=== PATIENT | female | born 1955 | race Caucasian/White ===

== ENCOUNTER → 2018-06-24 13:17 | Outpatient (CLI) | payer OTHER, SELFPAY ==
--- NOTE | 2018-06-24 | DI.MG.S_ITS ---
BILATERAL DIGITAL SCREENING MAMMOGRAM 3D/2D WITH CAD: 06/24/2018 CLINICAL: Routine screening. Family history of breast cancer. Comparison is made to exams dated: 11/07/2015 mammogram, 09/14/2013 mammogram, and 09/24/2011 mammogram - [facility]. There are scattered fibroglandular elements in both breasts. Current study was also evaluated with a Computer Aided Detection (CAD) system. There is a mole marker on the right breast. No significant masses, calcifications, or other findings are seen in either breast. There has been no significant interval change. IMPRESSION: NEGATIVE There is no mammographic evidence of malignancy. A 1 year screening mammogram is recommended. This exam was interpreted at Station ID: [id number]. NOTE: For mammograms, a report in lay terms will be sent to the patient. Approximately 15% of breast malignancies will not be visualized mammographically. In the management of a palpable breast mass, a negative mammogram must not discourage biopsy of a clinically suspicious lesion. Electronically Signed By: Issa salgado/aaliyah:06/28/2018 00:06:06 copy to: Vivian Wilcox letter sent: Normal Exam ACR BI-RADS Category 1: Negative 3341F
== END ==
PROVIDERS: Family Provider Physician Assistant Medical; PCP Physician Assistant Medical; Visit Provider Family Medicine
DX: Z12.31 Encounter for screening mammogram for malignant neoplasm of breast (principal); Z80.3 Family history of malignant neoplasm of breast
CPT/HCPCS: 77063; 77067

== ENCOUNTER → 2019-05-28 16:31 | Outpatient (CLI) | payer OTHER, SELFPAY | PROVIDERS: Family Provider Physician Assistant Medical; PCP Physician Assistant Medical; Visit Provider Physician Assistant | DX: N30.01 Acute cystitis with hematuria (principal) | CPT/HCPCS: 87086 ==

== ENCOUNTER → 2019-07-27 09:00 | Outpatient (CLI) | payer OTHER, SELFPAY ==
--- NOTE | 2019-07-27 | DI.MG.S_ITS ---
BILATERAL DIGITAL SCREENING MAMMOGRAM 3D/2D WITH CAD: 07/27/2019 CLINICAL: Routine screening. Family history of breast cancer. Comparison is made to exams dated: 06/24/2018 mammogram, 11/07/2015 mammogram, 09/14/2013 mammogram, 07/01/2006 mammogram, 09/24/2011 mammogram, and 09/11/2010 mammogram - [facility]. The tissue of both breasts is predominantly fatty. Current study was also evaluated with a Computer Aided Detection (CAD) system. There is a mole marker on the right breast. No significant masses, calcifications, or other findings are seen in either breast. There has been no significant interval change. IMPRESSION: NEGATIVE There is no mammographic evidence of malignancy. A 1 year screening mammogram is recommended. This exam was interpreted at Station ID: [id number]. NOTE: For mammograms, a report in lay terms will be sent to the patient. Approximately 15% of breast malignancies will not be visualized mammographically. In the management of a palpable breast mass, a negative mammogram must not discourage biopsy of a clinically suspicious lesion. Electronically Signed By: Sanya lopez/aaliyah:07/27/2019 10:31:47 copy to: Vivian Wilcox letter sent: Normal Exam ACR BI-RADS Category 1: Negative 3341F
--- NOTE | 2019-07-27 | DI.ECHO.S_ITS ---
[facility] +---------+ : : [address] : : : : [id number] : : : : Phone: [phone]+ Echocardiogram Report + + :Name: LONNIE GAMBINO Study Date: 07/27/2019 Height: 61 in : :[facility] Weight: 210 lb : : Gender: Female BSA: 1.9 m2 : :: 1955 Age: 63 yrs BP: 154/88 mmHg: :Reason For Study: Murmur : : Performed By: Angela Mccabe : :Referring: SERENITY COLEMAN : + + Interpretation Summary Normal both left and right ventricle size and function. The ejection fraction is 60-65%. No valvular abnormality. Mildly enlarged ascending aorta and aortic arch. Procedure: A two-dimensional transthoracic echocardiogram with color flow and Doppler was performed. The study quality was technically good. Most of the acoustic windows were suboptimal, but the best imaging was obtained from the subcostal window. The patient was in normal sinus rhythm during the exam. Left Ventricle: The left ventricle is normal in size, wall thickness, and systolic function without any focal wall motion abnormalities. The ejection fraction is estimated to be 60-65%. Right Ventricle: The right ventricle grossly appears normal in size with probable normal systolic function. Atria: The left atrial size is normal. Right atrial size is normal. The interatrial septum is intact with no evidence for an atrial septal defect. Mitral Valve: The mitral valve is normal in structure and function. There is no mitral regurgitation noted. Aortic Valve: The aortic valve is trileaflet. The aortic valve opens well. No aortic regurgitation is present. Tricuspid Valve: The tricuspid valve is normal in structure and function. There is a trace or physiologic amount of tricuspid regurgitation. The right ventricular systolic pressure is estimated to be at least 21 mmHg based on an estimated right atrial pressure of 3 mm Hg. Pulmonic Valve: The pulmonic valve is normal in structure and function. There is trace pulmonic regurgitation. Great Vessels: The aortic root is normal size. The ascending aorta is mildly enlarged. The aortic arch is mildly enlarged. The IVC is of normal diameter and collapses greater than 50% with a sniff. This suggests a low right atrial pressure of 3 mm Hg. Pericardium/ Pleura There is no pericardial effusion. There is no pleural effusion. MMode/2D Measurements & Calculations LVIDd: 4.6 cm Ao root diam: 3.6 cm LVIDs: 2.8 cm Aortic Jxn: 3.0 cm FS: 39.0 % asc Aorta Diam: 3.8 cm EPSS: 0.71 cm Ao Arch Diam (Prox Trans): 3.4 cm IVSd: 0.88 cm LVPWd: 0.96 cm LV zaman. diameter/BSA (cm/m^2): 2.4 LV sys. diameter/BSA (cm/m^2): 1.5 LA dimension: 3.7 cm RA long axis: 4.8 cm LA A2 area: 17.1 cm2 RA area: 13.4 cm2 LA A4 area: 19.0 cm2 RA vol: 32.1 ml LA length (vol): 5.4 cm RA : 16.6 ml/m2 LA vol: 51.4 ml IVC diam: 1.2 cm LA vol index: 26.7 ml/m2 RVDd major: 4.3 cm RVD1 (basal): 3.3 cm RVD2 (mid): 2.6 cm Doppler Measurements & Calculations Ao V2 max: 158.1 cm/sec MV E max jhonny: 93.8 cm/sec Ao V2 mean: 96.5 cm/sec MV A max jhonny: 92.4 cm/sec Ao max P.0 mmHg MV E/A: 1.0 Ao mean P.4 mmHg MV dec time: 0.30 sec Ao V2 VTI: 34.8 cm MV P1/2t: 88.4 msec TR max jhonny: 209.8 cm/sec MV P1/2t max jhonny: 94.0 cm/sec TR max P.6 mmHg MVA(P1/2t): 2.5 cm2 PA V2 max: 94.4 cm/sec PA V2 mean: 62.8 cm/sec PA mean P.8 mmHg PA Accel Time: 0.16 sec Electronically signed by: Veronica Graff on Reading Physician:07/27/2019 04:42 PM
== END ==
PROVIDERS: PCP Physician Assistant Medical; Visit Provider Family Medicine
DX: Z12.31 Encounter for screening mammogram for malignant neoplasm of breast (principal); Z80.3 Family history of malignant neoplasm of breast; R01.1 Cardiac murmur, unspecified; I77.89 Other specified disorders of arteries and arterioles
CPT/HCPCS: 77063; 77067; 93306

== ENCOUNTER → 2020-07-30 17:44 | Outpatient (CLI) | payer OTHER, SELFPAY ==
--- NOTE | 2020-07-30 17:45 | DI.MG.S_ITS ---
BILATERAL DIGITAL SCREENING MAMMOGRAM 3D/2D WITH CAD: 07/30/2020 CLINICAL: Routine screening. Family history of breast cancer. Comparison is made to exams dated: 07/27/2019 mammogram, 06/24/2018 mammogram, and 11/07/2015 mammogram - [facility]. The tissue of both breasts is predominantly fatty. Current study was also evaluated with a Computer Aided Detection (CAD) system. No significant masses, calcifications, or other findings are seen in either breast. There has been no significant interval change. IMPRESSION: NEGATIVE There is no mammographic evidence of malignancy. A 1 year screening mammogram is recommended. This exam was interpreted at Station ID: [id number]. NOTE: For mammograms, a report in lay terms will be sent to the patient. Approximately 15% of breast malignancies will not be visualized mammographically. In the management of a palpable breast mass, a negative mammogram must not discourage biopsy of a clinically suspicious lesion. Electronically Signed By: Eric proctor/aaliyah:07/31/2020 09:02:29 copy to: Vivian Wilcox letter sent: Normal Exam ACR BI-RADS Category 1: Negative 3341F
== END ==
PROVIDERS: PCP Physician Assistant Medical; Referring Provider Physician Assistant Medical; Visit Provider Physician Assistant Medical
DX: Z12.31 Encounter for screening mammogram for malignant neoplasm of breast (principal); Z80.3 Family history of malignant neoplasm of breast
CPT/HCPCS: 77063; 77067

== ENCOUNTER → 2020-09-25 14:49 | Outpatient (CLI) | payer MEDICARE, OTHER, SELFPAY ==
[2020-09-25 15:42] LABS: Appearance Urine UA CLEAR; Bilirubin Urine UA NEGATIVE (NEGATIVE); Color Urine UA YELLOW; Glucose Urine UA NEGATIVE (Negative); Ketones Urine UA NEGATIVE (NEGATIVE); Leukocyte Esterase Urine UA NEGATIVE (NEGATIVE); Nitrite Urine UA NEGATIVE (Negative); Occult Blood Urine UA TRACE-INTACT (Negative); Protein Urine UA TRACE (Negative); Specific Gravity Urine UA 1.015 (1.000-1.035)
[2020-09-25 15:50] LABS: Add Manual Diff / Slide Review NO; Basophils Absolute Auto 100 /uL (0-100); Basophils Percent Auto 0.7 % (0-2); Eosinophils Absolute Auto 300 /uL (0-450); Eosinophils Percent Auto 3.7 % (2-4); Hematocrit 39.4 % (36-46); Lymphocytes Absolute Auto 1700 /uL (1100-4500); Lymphocytes Percent Auto 18.8 % (25-40); Mean Corpuscular HGB Conc 33.2 % (30-36); Mean Corpuscular Hemoglobin 28.9 PG (26-34); Mean Corpuscular Volume 87.2 fL (80-100); Monocytes Absolute Auto 900 /uL (0-900); Monocytes Percent Auto 9.5 % (3-14); Neutrophils Absolute Auto 6200 /uL (1500-7000); Neutrophils Percent Auto 67.3 % (50-75); Platelet Count 261 X10^3/uL (150-400); Red Blood Cell Count 4.52 X10^6/uL (4.0-5.2); Red Cell Distribution Width 13.6 % (11.6-14.8); White Blood Cell Count 9.2 X10^3/uL (4.5-11.0)
[2020-09-25 15:55] LABS: Hemoglobin A1C% w Est Avg Glu 5.5 % (4.0-6.0)
[2020-09-25 16:21] LABS: BUN Creatinine Ratio 28.6 (6-22); Bacteria Urine Few (2-10); Blood Urea Nitrogen 20 mg/dL (7-17); Calcium 9.5 mg/dL (8.4-10.2); Carbon Dioxide 33 mmol/L (22-32); Chloride 101 mmol/L (98-107); Estimated Glomerular Filt Rate > 60.0 mL/min (>60); Glucose 106 mg/dL (80-110); HEMOLYSIS < 15 (0-50); Mucus Urine 1+ (Negative); Potassium 4.1 mmol/L (3.4-5.1); RBC Urine 1-5/HPF (0-5/HPF); Sodium 138 mmol/L (137-145); Squamous Epithelial Cell Urine 0-1 /HPF (0-5/HPF); WBC Urine 0-1/HPF (0-5/HPF)
[2020-09-25 16:22] LABS: Culture Indicated Urine Cult Not Indicated
== END ==
PROVIDERS: PCP Physician Assistant Medical; Referring Provider Physician Assistant Medical; Visit Provider Orthopaedic Surgery
DX: Z01.818 Encounter for other preprocedural examination (principal); R73.9 Hyperglycemia, unspecified; Z01.812 Encounter for preprocedural laboratory examination; N39.0 Urinary tract infection, site not specified
CPT/HCPCS: 36415; 80048; 81001; 83036; 85025; 93005; 93010

== ENCOUNTER → 2020-10-11 11:25 | Outpatient (CLI) | payer MEDICARE, OTHER, SELFPAY ==
[2020-10-11 12:36] LABS: COVID19 -Nasal RAPID Negative (Negative)
== END ==
PROVIDERS: PCP Physician Assistant Medical; Visit Provider Physician Assistant
DX: Z01.812 Encounter for preprocedural laboratory examination (principal); Z20.822 Contact with and (suspected) exposure to COVID-19
CPT/HCPCS: 87635; C9803

== ENCOUNTER 2020-10-14 08:43 | Day surgery (SDC) | payer MEDICARE, OTHER, SELFPAY ==
[2020-10-08 09:00] VITALS: BMI 35.9
[2020-10-14] VITALS (15 sets, daily range): BP systolic 91–135; BP diastolic 55–79; PULSE 61–76; RESP 10–20; TEMP 35.6–36.9; O2SAT 91–99; BMI 36.0
--- NOTE | 2020-10-14 | DI.RAD.S_ITS ---
PROCEDURE: XR PELVIS 1-2V INDICATIONS: INTER-OP ROSIO, right hip TECHNIQUE: Intra-operative view of the pelvis and hip acquired. COMPARISON: None. FINDINGS: An operative image was obtained during performance of a total right hip arthroplasty. There is no radiographic evidence of complications. IMPRESSION: Operative imaging utilized during right total hip arthroplasty. Dictated by: Michael Couch M.D. on 10/14/2020 at 14:17 Approved by: Michael Couch M.D. on 10/14/2020 at 14:18
[2020-10-14] MEDS: ACETAMINOPHEN 325 MG TABLET 975 MG PO (09:20)
[2020-10-14] MEDS: CELECOXIB 200 MG CAPSULE PO (09:20)
[2020-10-14] MEDS: LACTATED RINGERS 1,000 ML 42 ML IV ×3 (09:21→14:52)
[2020-10-14] MEDS: VANCOMYCIN 1,000 MG/200 ML PIGGYBACK 200 MG IV (10:19)
--- NOTE | 2020-10-14 10:41 | PM.PREOP ---
Pre-operative Note COVID-19 COVID-19 status: Negative Interval Note History & Physical reviewed/Exam performed by Physician: Yes Changes to H&P: No
--- NOTE | 2020-10-14 10:41 | PM.OP.1 ---
Operative Date/Time/Diagnoses Date of procedure: 10/14/20 Time of procedure: 10:41 Pre-op diagnosis: right hip OA Post-op diagnosis: same Procedure & Clinicians Procedure: Right total hip arthroplasty posterior approach Same procedure as scheduled: Yes Indications: The patient has had progressively worsening right hip pain with radiographic changes consistent with arthritis. Non-operative management has failed and the patient has requested total hip replacement. The risks, benefits and alternatives to surgery were discussed with the patient prior to proceeding. Risks discussed included, but were not limited to, failure to relieve pain, leg length discrepancy, dislocation, stiffness, infection, nerve damage, deep venous thrombosis, pulmonary embolism, stroke, coma, heart attack, permanent paralysis and , as well as the potential need for eventual revision of the prosthetic. Surgeon: Narcisa Monroe Athletic Coordinator: Shelbi Saeed Anesthesia Type: General Operative Notes Findings: Severe right hip osteoarthritis and avascular necrosis. Closure Type: primary Specimen(s): none sent Prosthetic devices, grafts, tissues, transplants, or devices: [employer]hew 50 R3 cup, 32 x 50 liner, one 20 mm screw, size 7 standard offset anthology Estimated Blood Loss (mL): 250 Blood products transfused: none Procedure in detail: The patient was seen in the pre-operative area, where the patient identified the left hip as the operative site and this was marked with my initials. The patient received pre-operative antibiotics and was taken to the operating room and placed on the operative table in the right lateral decubitus position after satisfactory anesthesia. A technical support 1 software engineer out was performed. The left leg was prepared from the ankle to the iliac crest with ChloroPrep in the usual fashion and draped through sterile drapes. The hip was approached through an approximately 20 cm incision centered over the greater trochanter and curving gently posteriorly as it went proximally. This was carried sharply to the fascia bj, which was divided and retracted with a self retaining retractor. The trochanteric bursa was excised with care being taken to avoid the sciatic nerve, which was identified and protected throughout the case. The short external rotators were incised and the capsulomuscular flap was raised and tagged for later repair. The hip was dislocated, and a femoral neck osteotomy performed approximately 15 mm above the lesser trochanter. Retractors were placed around the femur. The canal was opened with a box cutting osteotome, followed by a T handled reamer and a lateralizing reamer. The chili pepper broach was then used, followed by sequential broaching until there was good stability of the broach in the femur. I checked initially and anthology a but there is actually a little better fit and fill with a standard anthology. Retractors were placed to expose the acetabulum. The labrum and central soft tissues were removed. Reaming was performed initially going up in 2 mm increments, then 1 mm increments until good bite was obtained with an odd sized reamer. The cup 1 mm larger than the last reamer was then inserted using the appropriate anteversion guides. A trial neutral liner was placed. The broach was placed in the canal. A trial head and neck were then placed and the hip relocated and checked for leg length and stability. An intraoperative film confirmed the component position and no evidence of fracture. The patient was stable in the position of sleep, of squatting, and could be put through a range of motion with 45 degrees internal rotation without dislocation. At 90 degrees flexion, internal rotation to 70? was possible before dislocation. This was felt to be satisfactory and the appropriate components were opened, and the trials were removed. The rim was slightly proud posteriorly and I tamped on it a small amount attempted to further impact the cup and then further stabilize the cup with a single screw. The acetabular liner was impacted into position. The final stem was then impacted into the prepared femoral canal. The hip was meticulously irrigated with normal saline. Finally the femoral head was impacted onto the stem. The acetabulum was cleared of all material and the hip relocated one final time. The capsulomuscular flap was then repaired to the greater trochanter though an awl hole using the tag sutures. The short external rotators were repaired with a nonabsorbable suture. A deep drain was placed and brought out anteriorly. The fascia bj was closed with Vicryl. The subcutaneous layer was closed with barbed sutures and SteriStrips. An torie dressing was applied and the patient was taken to recovery having tolerated the procedure well. Complications: none Post-operative Condition: stable Disposition: Acute Care Plan for aftercare: The patient will be maintained on a standard total hip replacement protocol with weight bearing as tolerated and posterior hip precautions. The patient will receive Aspirin and sequential compression devices for DVT prophylaxis. The patient will be discharged home when safe for the home environment.
[2020-10-14] MEDS: CEFAZOLIN 2 GM/100 ML FROZ.PIGGY IV ×2 (11:28→18:23)
[2020-10-14] MEDS: TRANEXAMIC ACID 1,000 MG VIAL 1000 MG INJ ×2 (11:50→13:40)
--- NOTE | 2020-10-14 12:15 | SUR.OPER ---
Lateral on padded OR bed. Gel axillary roll. Arms secured on padded armboard with pillow supporting top arm. Padded hip positioner braces x4 - anterior and posterior chest and pelvis. Additional gel pad used anterior pelvis. Gel pad under bottom leg from knee to foot and secured with tape over sheet.
[2020-10-14] MEDS: BUPIVACAINE LIPOSOME 266 MG/20 ML VIAL INJ (12:19)
[2020-10-14] MEDS: BUPIVACAINE 0.25% W/ EPI 30 ML VIAL 60 ML INJ (12:20)
[2020-10-14] MEDS: SODIUM CHLORIDE IRRIG SOLUTION 250 ML, POVIDONE-IODINE SPONGE STICKS 1 APPLIC IRR (12:20)
[2020-10-14] MEDS: fentaNYL 100 MCG/2 ML INJ IV (14:44)
--- NOTE | 2020-10-14 14:45 | DI.RAD.S_ITS ---
PROCEDURE: XR HIP W PEL IF DONE RT 2V INDICATIONS: POST OP HIP TECHNIQUE: AP pelvis and lateral view of the right hip acquired. COMPARISON: [facility], CR, XR PELVIS WITH LATERAL HIP RIGHT, 07/23/2020, 15:06. [facility], CR, XR PELVIS 1-2V, 10/14/2020, 12:57. FINDINGS: Bones: Patient is status post right hip arthroplasty, with hardware components in expected positions. The hip joint appears congruent. The visualized bony structures appear intact. Soft tissues: Overlying postoperative changes are noted. No suspicious soft tissue densities. IMPRESSION: 1. Right hip arthroplasty with prosthesis in anatomic alignment. Dictated by: Neel Villalta M.D. on 10/14/2020 at 14:57 Approved by: Neel Villalta M.D. on 10/14/2020 at 14:58
[2020-10-14] MEDS: OXYCODONE IR 5 MG TABLET PO (15:36)
[2020-10-14] MEDS: LACTATED RINGERS 1,000 ML 125 ML IV (16:30)
[2020-10-14] MEDS: ACETAMINOPHEN 325 MG TABLET 650 MG PO ×2 (18:13→21:49)
[2020-10-14] MEDS: buPROPion XL 150 MG TAB 300 MG PO (18:23)
[2020-10-14] MEDS: IBUPROFEN 400 MG TABLET PO ×2 (18:24→21:46)
[2020-10-14] MEDS: TRAMADOL 50 MG TABLET PO (20:14)
[2020-10-14] MEDS: ONDANSETRON 4 MG/2 ML INJ IV (21:46)
[2020-10-14] MEDS: DOCUSATE 100 MG CAPSULE PO (21:46)
[2020-10-14] MEDS: ASPIRIN EC 81 MG TABLET PO (21:46)
--- NOTE | 2020-10-14 23:04 | PC.NURSE ---
shift note- Pt unresponsive, Q-2 turns @ 1700,1900, and 2039. Roland in place, so far no urine output at this time (1929). 97% RA, LS shallow and clear. HR ST-103. RR 18-20. RFA SL, ERICA midline 1/2 NS @ 100. Marla coma score-3. toes to both feet cyanotic and blanchable. 2109- In to check on pt and noticed no rise/fall to chest. No pulse to carotid by auscultation. Time of recorded 21:15. Dr. Soler, pt's Eugene, and Evens called.
--- NOTE | 2020-10-14 23:48 | PC.NURSE ---
Addendum entered by Katlyn Pearce R.N. 10/14/20 23:52: 2030- Pt able to wiggle toes but not ankle wave. C/O LLQ pain it feels like I'm having a . Educated to GI awakening and probably gas. Pt then C/O nausea and medicated with zofran 4mg IVP. Pt c/o pain /10, medicated with ultram 50mg, effective. , Ace in room and staying the night. Original Note: 1600- Pt arrived to room 216 from PACU via bed. Alert x4 but still drowsy. Right hip BE drsg CDI, HV site CDI, unable to move lower extremities. SCD's on. Ace in room. Placed brief under pt. provided with water. LFA LR @ 125. Pt denies any pain, nausea, or SOB. Call in reach.
[2020-10-15] VITALS: BP 104/60; PULSE 73; RESP 18; TEMP 36.8; O2SAT 94
[2020-10-15] MEDS: IBUPROFEN 400 MG TABLET PO ×3 (01:26→08:19)
[2020-10-15] MEDS: LACTATED RINGERS 1,000 ML 125 ML IV (01:27)
[2020-10-15] MEDS: CEFAZOLIN 2 GM/100 ML FROZ.PIGGY IV (03:29)
[2020-10-15 03:32] VITALS: BP 102/60; PULSE 74; RESP 16; TEMP 36.7; O2SAT 94
[2020-10-15 06:15] LABS: Hematocrit 33.9 % (36-46); Hemoglobin 11.1 g/dL (12.0-16.0)
--- NOTE | 2020-10-15 07:41 | PM.PNPO.1 ---
Subjective Subjective Date Patient Seen: 10/15/20 Time Patient Seen: 08:09 Interval history: She notes that she is doing reasonably well. She got a pain pill yesterday and was groggy for multiple hours. She has been incontinent. She has not been out of bed that she has minimal hip pain. Exam Vital Signs (past 8 hours): - 10/15/20 00:00 10/15/20 03:32 Temperature 98.3 F 98.0 F Pulse Rate 73 74 Respiratory Rate 18 16 Blood Pressure 104/60 102/60 Pulse Oximetry 94 94 Oxygen Delivery Method Room Air Oxygen Flow Rate 0 Narrative Exam Narrative: Alert and oriented fair range of motion in the neck normal strength in her hands, dressings intact and dry she is neurologically intact diff distally are calfs are soft bilaterally and she has minimal pain with gentle range of motion in her hip Objective Labs Result Diagrams: 10/15/20 05:40 Labs: Laboratory Results - last 24 hr 10/15/20 05:40 Hgb 11.1 L Hct 33.9 L PFSH Medical History (Updated 10/08/20 @ 09:11 by Karlene Hendrickson RN) Anxiety Depression Eczema HTN (hypertension) Surgical History (Updated 10/08/20 @ 09:40 by Karlene Hendrickson RN) History of colonoscopy History of surgery (11/08/06) Status post delivery (01/12/85) Status post delivery (01/24/87) Social History household members: spouse Smoking Status: Never smoker alcohol intake: current Assessment & Plan Post-op Postoperative Procedures: Procedures Operation Date: 10/14/20 10:45 Actual Procedures Side Surgeon p Total Hip Arthroplasty Right Narcisa Monroe MD Postoperative day: 1 Postoperative status narrative: Doing well status post right total hip arthroplasty. Postoperative plan narrative: She is doing well postoperatively she needs to get mobilized with physical therapy and then she can be discharged to home. Follow up as previously scheduled. Time Spent With Patient Time with patient: less than 15 minutes
[2020-10-15 08:05] VITALS: BP 105/71; PULSE 71; RESP 16; TEMP 36.6; O2SAT 95
[2020-10-15 08:14] VITALS: BP 105/71
[2020-10-15] MEDS: buPROPion XL 150 MG TAB 300 MG PO (08:19)
[2020-10-15] MEDS: ACETAMINOPHEN 325 MG TABLET 650 MG PO (08:20)
[2020-10-15] MEDS: DOCUSATE 100 MG CAPSULE PO (08:20)
[2020-10-15] MEDS: ASPIRIN EC 81 MG TABLET PO (08:20)
--- NOTE | 2020-10-15 10:46 | PC.NURSE ---
Pt discharge prescription Tramadol 50mg 30 tabs was not signed by Dr. Narcisa Monroe. called [facility] and her nurse will call med into [facility] in [place]. Prescription paper copy will be destroyed.
--- NOTE | 2020-10-15 10:56 | PT.IIE ---
Current Diagnoses Unilateral primary osteoarthritis, right hip (10/14/20) Pain in right hip (10/14/20) Surgery Performed Operation Date: 10/14/20 10:45 Actual Procedures p Total Hip Arthroplasty(Right) - Narcisa Monroe MD Surgical History (Last Updated 10/08/20 @ 09:40 by Karlene Hendrickson, RN) History of colonoscopy History of surgery (11/08/06) Status post delivery (01/12/85) Status post delivery (01/24/87) Medical History (Last Updated 10/08/20 @ 09:11 by Karlene Hendrickson RN) Anxiety Depression Eczema HTN (hypertension) Physical Therapy Inpatient Evaluation/Re-Eval M1 PT/OT-IP Prior Functional Status Start: 10/15/20 08:28 Freq: NEEDED Status: Active Protocol: Document 10/15/20 10:40 (Rec: 10/15/20 10:56 [id number]) Medical Review Prior Functional Status Medical History Reviewed Yes Diet/Fluid Consistency Regular Communication no deficits ntoed Mobility and Gait able to amb without AD but with significant hip pain. Only able to tolerate 20-30 ft at once and needed rest break . Pt started to 4WW and furniture cruise since 2 weeks ago d/t increase pain Activities of Daily Living and IADL's IND for ADLs, assists for IADLs such as house cleaning and grocery shopping. Pt can drive Social History Household Members spouse Living Arrangements House Number of Floors (Floors) One Floor Number of Stairs To Enter/Railing? 2STE with R rail and L fridge for support from garage entrance Home Environment Standard Height Toilet,High Toilet Home Equipment Four Wheel Walker,Straight Cane,Raised Toilet Seat w/ Armrests,Shower Seat with Backrest,Hand Held Shower,Long Handled Shoe Horn,Fittings Finisher, Sock Aid,Grab Bars In Shower Employment Status Unknown Additional Social History Comment Pt lives with her Ace in [facility]. He is retired and will be able to assist 02/05. She also has a dtr to assist if needed. Pt will participate outpatient PT at [facility] at [place]. M2 PT-IP Current Condition Start: 10/15/20 08:28 Freq: NEEDED Status: Active Protocol: Document 10/15/20 10:40 HH (Rec: 10/15/20 10:56 [id number]) Physical Therapy Current Condition Current Condition Evaluation Date 10/15/20 Treatment Diagnosis R ROSIO with posterior approach, difficulty in walking Onset Date 10/14/20 Precautions Posterior Hip Precautions No Hip Flexion > 90 degrees,No Hip Internal Rotation,No Hip Adduction Weight Bearing Status Weight Bearing Status Weight Bear as Tolerated M3 PT-IP Subjective Start: 10/15/20 08:28 Freq: NEEDED Status: Active Protocol: Document 10/15/20 10:40 (Rec: 10/15/20 10:56 [id number]) Subjective Physical Therapy Visit Type Type Initial Evaluation Visit Start Time 09:07 Visit Stop Time 09:45 Total Visit Minutes 38 Notes Ace at bedside Number of BRIDAL CONSULTANT Visits 0 Physical Therapy Visit Comments Patient Comments Im ready to move Patient Goals to return home safely with Therapy Pain Assessment Pain When Pain Assessed During Mobility Pain Present Pain Present Pain Reported Location neck Intensity 2 Scale Used Numeric (0 - 10) Description Aching Pain Management Techniques Timing of Activity with Medications M4 PT-IP Mobility and Gait Start: 10/15/20 08:28 Freq: NEEDED Status: Active Protocol: Document 10/15/20 10:40 (Rec: 10/15/20 10:56 [id number]) PT-Bed Mobility Assessment Rolling Type of Rolling Roll to Left Supine to Sit Supine to Sit Standby Assistance,Bedrails Scooting Scooting to Edge of Bed Standby Assistance PT-Transfer Assessment Sit to and From Stand Sit to and from Stand Standby Assistance,Use of Upper Extremities Equipment Transfer Assistive Device Bed Rail,Front Wheeled Walker, 4 Wheeled Walker Orthotic/Prosthetic Devices or Brace: No Transfers Transfer Destination Bed,Chair Transfer Technique Stand Step Pivot Transfer Ability Level of Assist Standby Assistance,Use of Upper Extremities Comments Mobility Comments Pt was in bed upon PT arrival. BP 116/62. at bedside . Pt agreeable to mobilize with PT. She initially used LLE to unweight RLE and pivoted towards L side EOB. She then log rolled to L side with L bed rail (pt has it at home), followed by pushing off from sidelying position and sat up at EOB SBA. Pt stood up with FWW after SBA and proceed to walk to toilet with step to pattern. She was able to take small steps and descend with FWW and L grab bar safely. Pt completed self care with assistance. She then walked out of toilet and amb in the hallway. Pt progressed to step over pattern steadily with SBA. She completed 120 ft with FWW then climbed 3 steps x 2 sets with B rails. Completed 1st set with PT CGA and 2nd set with CGA. Pt showed proper LE sequence and safe body mechanics. She then walked back to her room with 4WW. She was able to safely navigate and properly used her brakes for speed control. She returned to her chair after with proper hand placements and stagger stance. Pt rested in chair comfortably after . call light placed within reach . Gait Assessment Gait Gait Assistance Required: Standby Assistance Distance (Feet) 240 Able to Maintain Weight Bearing Status Yes During Gait Assistive Devices Assistive Device Gait Belt,Front Wheeled Walker ,4 Wheeled Walker Orthotic/Prosthetic Devices or Brace: No Gait Deviations General Gait Pattern Antalgic,Decreased Stride Length,Decreased Feet Clearance,Step-to Gait Factors Limiting Gait Function Factors Limiting Gait Function Decreased Activity Tolerance, Decreased Strength,Limited Range of Motion,Pain,Poor Balance Comments Gait Comments see mobiltiy comments Stair Climbing Assessment Evaluation Level of Assist On Stairs Contact Guard Assistance Devices Stair Climbing Assistive Devices Left Railing,Right Railing Technique/Endurance Stair Climbing Direction Ascend and Descend Stair Climbing Technique Step to Step Number of Steps Climbed 3 Query Text: Stair Climbing Set # Repetitions (reps) 2 Comments Stair Climbing Comments see mobiltiy comments PT-Balance Assessment Sitting Balance and Reactions Static Sitting Balance Ability Normal Dynamic Sitting Balance Ability Normal Standing Balance and Reactions Static Standing Balance Ability Good Dynamic Standing Balance Ability Good Device Used FWW/4WW M5 PT-IP Objective Assessments Start: 10/15/20 08:28 Freq: NEEDED Status: Active Protocol: Document 10/15/20 10:40 (Rec: 10/15/20 10:56 [id number]) Orientation Orientation/Cognition Orientation Name Language Function Ability No Deficits Noted Safety Awareness Understands Safety Issues Memory Description No Deficits Noted Gross Range of Motion Upper Extremity ROM Assessment Within Functional Limits Lower Extremity ROM Assessment Right Impaired Strength Upper Extremity Strength Assessment Within Functional Limits Lower Extremity Strength Assessment Right Impaired Hip 4-/5 Knee 4+/5 Ankle 5/5 Coordination Assessment Gross Coordination Gross Coordination WNL Sensation Assessment Sensation Gross Sensation WNL Muscle Tone Muscle Tone WNL Yes M6 PT-IP Treatment Start: 10/15/20 08:28 Freq: NEEDED Status: Active Protocol: Document 10/15/20 10:40 (Rec: 10/15/20 10:56 [id number]) Physical Therapy Treatment Exercises Exercises Ankle Pumps,Gluteal Sets,Heel Slides,Supine Hip Abduction Education Education Provided Precautions,Weight Bearing Status,Post-Op Packet,Safety M7 PT-IP Assessment and Plan Start: 10/15/20 08:28 Freq: NEEDED Status: Active Protocol: Document 10/15/20 10:40 HH (Rec: 10/15/20 10:56 [id number]) PT Summary Assessment and Plan Potential Rehabilitation Potential Excellent Status of Condition at Evaluation Stable Summary Impairments Pain,ROM,Strength,Balance,Bed Mobility,Transfers,Gait, Activity Tolerance Progress Towards Goals Safe For Discharge Assessment Summary This is a low complexity for this 65yo female s/p POD1 R ROSIO with posterior approach. PLOF= modified IND for all mobility without AD but only able to tolerate short distance of walking. Needed assistance from for some IADLS. CLOF= pt is SBA for mobility with FWW/ 4WW and CGA for stair climbing. She is well aware of all post precautions. She is safe to go home with assistance and outpatient PT to improve her mobility and strength. Frequency of Treatment Frequency Of Treatment Discharge Recommendations To Nursing Amount of Assist Needed 1 Person Assist Discharge Recommendations PT Discharge Recommendations Home with Assistance, Outpatient PT Transportation Needs at Discharge Private Vehicle
--- NOTE | 2020-10-15 11:22 | PC.NURSE ---
Pt is dressed and ready for discharge home with Spouse. She has been cleared by PT. Reviewed stroke education, posterior hip precautions, s/s of infection, trouble shooting the BE dressing, drinking plenty of fluids to prevent constipation or dehydration, and d/c meds. Pt denies further questions and was taken out to pov via w/c by [employer] with all belongings.
--- NOTE | 2020-10-15 15:41 | CM.IDA ---
Initial DCP Assessment Note Pt is a 65yo female, resident of [place], now POD#1 from Rt ROSIO surgery w/ Dr Monroe PCP: Vivian Wilcox Payer: [facility] Reviewed chart, pt discussed in multidisciplinary rounds this morning. Therapy has cleared pt for return home w/family to assist and pt has planned for home, DC order from Ortho has already been initiated this morning. Met w/patient and spouse, patient eager to return home, patient walking the hallway today w/spouse following her w/his walker. Patient denies needs from this DESK EDITOR. Plan: DC home w/supportive family, outpatient PT DARRIAN Mckeon
== END 2020-10-15 11:24 | disposition home or self-care (01) ==
LOC: OR 08:45 → AC 08:46
PROVIDERS: Admitting Provider Anesthesiology; PCP Physician Assistant Medical; Referring Provider Physician Assistant Medical; Visit Provider Orthopaedic Surgery
PROC: 0SR90JZ Replacement of Right Hip Joint with Synthetic Substitute, Open Approach (ICD-10-PCS; CPT 27130; principal; 2020-10-14 10:45)
DX: M16.11 Unilateral primary osteoarthritis, right hip (principal); M87.9 Osteonecrosis, unspecified; I10 Essential (primary) hypertension
CPT/HCPCS: 27130; 36415; 72170; 73502; 85014; 85018; 94760; 97161; C1776; C9290; J0690; J1100; J2250; J2274; J2405; J2704; J3010

== ENCOUNTER → 2021-08-03 15:58 | Outpatient (CLI) | payer MEDICARE, OTHER, SELFPAY ==
[2020-10-14 08:48] VITALS: BMI 36.0
--- NOTE | 2021-08-03 15:59 | DI.MG.S_ITS ---
BILATERAL DIGITAL SCREENING MAMMOGRAM 3D/2D WITH CAD: 08/03/2021 CLINICAL: Routine screening. Family history of breast cancer. Comparison is made to exams dated: 07/30/2020 mammogram, 07/27/2019 mammogram, and 06/24/2018 mammogram - [facility]. There are scattered fibroglandular elements in both breasts. Current study was also evaluated with a Computer Aided Detection (CAD) system. No significant masses, calcifications, or other findings are seen in either breast. There has been no significant interval change. IMPRESSION: NEGATIVE There is no mammographic evidence of malignancy. A 1 year screening mammogram is recommended. This exam was interpreted at Station ID: [id number]. NOTE: For mammograms, a report in lay terms will be sent to the patient. Approximately 15% of breast malignancies will not be visualized mammographically. In the management of a palpable breast mass, a negative mammogram must not discourage biopsy of a clinically suspicious lesion. Electronically Signed By: Bri oreilly/aaliyah:08/03/2021 17:24:13 copy to: Vivian Wilcox letter sent: Normal Exam ACR BI-RADS Category 1: Negative [id number]
== END ==
PROVIDERS: PCP Physician Assistant Medical; Referring Provider Physician Assistant Medical; Visit Provider Physician Assistant Medical
DX: Z12.31 Encounter for screening mammogram for malignant neoplasm of breast (principal); Z80.3 Family history of malignant neoplasm of breast
CPT/HCPCS: 77063; 77067

== ENCOUNTER → 2022-08-19 13:59 | Outpatient (CLI) | payer MEDICARE, OTHER, SELFPAY ==
[2020-10-14 08:48] VITALS: BMI 36.0
--- NOTE | 2022-08-19 | DI.MG.S_ITS ---
BILATERAL DIGITAL SCREENING MAMMOGRAM 3D/2D WITH CAD: 08/19/2022 CLINICAL: Routine screening. Family history of breast cancer. Comparison is made to exams dated: 08/03/2021 mammogram, 07/30/2020 mammogram, and 07/27/2019 mammogram - [facility]. Both breasts are almost entirely fatty (category a/<25% glandular tissue). Current study was also evaluated with a Computer Aided Detection (CAD) system. No significant masses, calcifications, or other findings are seen in either breast. There has been no significant interval change. IMPRESSION: NEGATIVE There is no mammographic evidence of malignancy. A 1 year screening mammogram is recommended. Based on the Tyrer Cuzick model (a risk assessment model) the patient's lifetime risk is 4.5% and her 10 year risk is 2.2%. According to the ACR, ACS, and NCCN guidelines, an annual breast MRI exam along with mammogram is recommended if the patient's lifetime risk is 20% or greater. This exam was interpreted at Station ID: [id number]. NOTE: For mammograms, a report in lay terms will be sent to the patient. Approximately 15% of breast malignancies will not be visualized mammographically. In the management of a palpable breast mass, a negative mammogram must not discourage biopsy of a clinically suspicious lesion. Electronically Signed By: Bri oreilly/aaliyah:08/19/2022 18:08:28 copy to: Vivian Wilcox letter sent: Normal Exam ACR BI-RADS Category 1: Negative 3341F
== END ==
PROVIDERS: PCP Physician Assistant Medical; Referring Provider Physician Assistant Medical; Visit Provider Physician Assistant Medical
DX: Z12.31 Encounter for screening mammogram for malignant neoplasm of breast (principal); Z80.3 Family history of malignant neoplasm of breast
CPT/HCPCS: 77063; 77067

== ENCOUNTER → 2023-06-16 10:20 | Outpatient (CLI) | payer MEDICARE, OTHER, SELFPAY ==
[2020-10-14 08:48] VITALS: BMI 36.0
--- NOTE | 2023-06-16 | DI.RAD.S_ITS ---
Bone Density Report Name: LONNIE GAMBINO Age: 67 Sex: Female Ethnicity: White Date of : 1955 Indication: postmenopausal; screening for osteoporosis; Referring Provider: BETZAIDA SUTTON Study: Bone densitometry was performed. Exam Date: June 16, 2023 Accession number: [id number] Bone Density: Region BMD T-score Z-score Classification Femoral Neck (Left) 0.792 -0.5 1.1 Normal Total Hip (Left) 0.961 0.2 1.5 Normal Total Forearm (Left) 0.595 0.3 2.1 Normal 1/3 Forearm (Left) 0.729 0.6 2.5 Normal UD Forearm (Left) 0.437 -0.1 1.2 Normal World Health Organization criteria for BMD impression classify patients as: Normal (T-score at or above -1.0), Osteopenia (T-score between -1.0 and -2.5), or Osteoporosis (T-score at or below -2.5). 10-year Fracture Risk: FRAX not reported because: All T-scores for Spine Total, Hip Total, Femoral Neck at or above -1.0 Previous Exams: -- Region Exam Age BMD T-score BMD Change BMD Change Date g/cm2 vs Baseline vs Previous -- Total Hip(Left) 06/16/2023 67 0.961 0.2 0.031 (3.3%)# 0.031 (3.3%)# 11/07/2015 60 0.930 -0.1 -- *Denotes significance at 95% confidence level, LSC for Total Hip = 0.027 g/cm2 # Denotes dissimilar scan types or analysis methods Impression: The patient has normal bone mass. No significant bone loss was observed. Discussion: BONE DENSITY IS ABOVE THE MINIMUM DESIRABLE LEVEL AT ALL SKELETAL SITES TESTED. This patient's bone mineral density is above the minimum desirable level (T-score -1.0 or better) at all sites measured. The patient should follow a healthful lifestyle (good nutrition with adequate calcium and vitamin D, and appropriate weight-bearing exercise). Follow-Up: Consider repeating this study in 5 years or sooner if there is some new clinical indication. Reported by: ZACHARIAH AVILA M.D. on 06/16/2023 11:50:00 AM.
--- NOTE | 2023-06-16 | DI.ECHO.S_ITS ---
[facility]---------+ [facility] +---------+ : : [address] : [place] : : : : [id number] : : : : Phone: [phone]---------+ Echocardiogram Report + + :Name: LONNIE GAMBINO Study Date: 06/16/2023 Height: 61 in : :[facility] ReadingLocation: Weight: 185 lb : : Gender: Female BSA: 1.8 m2 : :: 1955 Age: 67 yrs BP: 137/84 mmHg: :Reason For Study: Thoracic Aortic Ectasia : :Ordering Physician: HERMAN, : :BETZAIDA Performed By: Carmen Palacios : :Referring: BTEZAIDA SUTTON : + + Interpretation Summary Normal sinus rhythm. Normal LV size and wall thickness; normal wall motion and LV systolic function. EF is 50-55%. Stage I diastolic dysfunction. Normal chamber sizes. No significant valvular abnormalities. Mildly dilated ascending aorta measuring 3.9 cm diameter. Compared to prior study 07/27/2019 no significant changes have occurred. Procedure: A two-dimensional transthoracic echocardiogram with color flow and Doppler was performed. The study quality was technically adequate. Comparison is made with the echocardiogram of 07/27/2019. The patient was in normal sinus rhythm during the exam. Left Ventricle: The left ventricle is normal in size. The ejection fraction is estimated to be 50-55%. Diastolic parameters suggest a relaxation abnormality of the left ventricle, consistent with probable normal filling pressures. Right Ventricle: The right ventricle is normal in size and function. Atria: The left atrial size is normal. Right atrial size is normal. There is no Doppler evidence for an interatrial shunt. Mitral Valve: The mitral valve leaflets appear mildly thickened, but open well. There is no mitral valve stenosis. There is trace mitral regurgitation. Aortic Valve: The aortic valve is trileaflet. The aortic valve opens well. There is no aortic valve stenosis. No aortic regurgitation is present. Tricuspid Valve: The tricuspid valve is normal. There is no tricuspid stenosis. There is trace tricuspid regurgitation. The right ventricular systolic pressure is estimated to be at least 16 mmHg based on an estimated right atrial pressure of 3 mm Hg. Pulmonic Valve: The pulmonic valve leaflets are thin and pliable; valve motion is normal. There is no pulmonic valvular stenosis. There is trace pulmonic regurgitation. Great Vessels: The aortic root is normal size. The ascending aorta is mildly enlarged. The pulmonary artery is normal size. The IVC is of normal diameter and collapses greater than 50% with a sniff. This suggests a low right atrial pressure of 3 mm Hg. Pericardium/ Pleura There is no pericardial effusion. There is no pleural effusion. MMode/2D Measurements & Calculations LVIDd: 4.6 cm LVOT diam: 1.9 cm LVIDs: 3.0 cm Ao root diam: 3.2 cm FS: 34.8 % asc Aorta Diam: 3.9 cm EPSS: 0.70 cm IVSd: 0.90 cm LVPWd: 0.80 cm LV zaman. diameter/BSA (cm/m^2): 2.5 LV sys. diameter/BSA (cm/m^2): 1.6 LA A2 area: 17.2 cm2 RA long axis: 4.8 cm LA A4 area: 12.7 cm2 RA area: 12.4 cm2 LA length (vol): 5.5 cm RA vol: 27.1 ml LA vol: 33.9 ml RA : 14.9 ml/m2 LA vol index: 18.5 ml/m2 RVD1 (basal): 3.3 cm LVLs ap4: 6.3 cm LVLd ap2: 6.9 cm TAPSE_phl: 2.6 cm LVLs ap2: 6.2 cm Doppler Measurements & Calculations Ao V2 max: 123.5 cm/sec LVOT Max Jhonny: 100.6 cm/sec Ao V2 mean: 86.5 cm/sec LV V1 max P.0 mmHg Ao max P.0 mmHg LV V1 VTI: 23.5 cm Ao mean P.0 mmHg CARLY(I,D): 2.3 cm2 Ao V2 VTI: 29.4 cm CARLY(V,D): 2.3 cm2 sev ratio: 0.80 CARLY indexed to BSA (cm^2/m^2): 1.2 MV E max jhonny: 72.7 cm/sec TR max jhonny: 176.5 cm/sec MV A max jhonny: 87.1 cm/sec TR max P.5 mmHg MV E/A: 0.83 PA V2 max: 86.9 cm/sec Med Peak E' Jhonny: 6.7 cm/sec PA V2 mean: 60.4 cm/sec E/E' med: 10.9 PA mean P.0 mmHg Lat Peak E' Jhonny: 6.9 cm/sec PA pr(Accel): 36.3 mmHg E/E' lat: 10.5 E/e' average: 10.7 MV dec time: 0.24 sec SV(LVOT): 66.5 ml AV VR_phl: 0.81 CARLY(VTI)/BSA_phl: 1.2 Electronically signed by: Swapna Allen M.D. on Reading Physician:06/17/2023 01:17 AM
== END ==
PROVIDERS: PCP Physician Assistant Medical; Referring Provider Physician Assistant Medical; Visit Provider Physician Assistant Medical
DX: Z78.0 Asymptomatic menopausal state (principal); I77.810 Thoracic aortic ectasia; Z13.820 Encounter for screening for osteoporosis; I77.89 Other specified disorders of arteries and arterioles
CPT/HCPCS: 77080; 77081; 93306

== ENCOUNTER → 2024-02-16 11:45 | Outpatient (CLI) | payer MEDICARE, OTHER, SELFPAY ==
[2020-10-14 08:48] VITALS: BMI 36.0
[2024-02-13 13:02] VITALS: BMI 36.0
--- NOTE | 2024-02-16 12:55 | DI.MG.S_ITS ---
BILATERAL DIGITAL SCREENING MAMMOGRAM 3D/2D WITH CAD: 02/16/2024 CLINICAL: Routine screening. Family history of breast cancer. Comparison is made to exams dated: 08/19/2022 mammogram, 07/30/2020 mammogram, and 08/03/2021 mammogram - [facility]. Both breasts are almost entirely fatty (category a/<25% glandular tissue). Current study was also evaluated with a Computer Aided Detection (CAD) system. There is a benign calcification in the left breast. There also are benign calcifications in the right breast. No significant masses, calcifications, or other findings are seen in either breast. There has been no significant interval change. IMPRESSION: BENIGN There is no mammographic evidence of malignancy. A 1 year screening mammogram is recommended. Based on the Tyrer Cuzick model (a risk assessment model) the patient's lifetime risk is 4.1% and her 10 year risk is 2.2%. According to the ACR, ACS, and NCCN guidelines, an annual breast MRI exam along with mammogram is recommended if the patient's lifetime risk is 20% or greater. This exam was interpreted at Station ID: [id number]. NOTE: For mammograms, a report in lay terms will be sent to the patient. Approximately 15% of breast malignancies will not be visualized mammographically. In the management of a palpable breast mass, a negative mammogram must not discourage biopsy of a clinically suspicious lesion. Electronically Signed By: Shannan conti/aaliyah:02/16/2024 13:26:21 copy to: Vivian Wilcox letter sent: Normal Exam ACR BI-RADS Category 2: Benign Finding(s) 3342F
--- NOTE | 2024-02-16 12:55 | DI.RAD.S_ITS ---
PROCEDURE: XR KNEE RT 3V INDICATIONS: RIGHT KNEE PAIN TECHNIQUE: 3 views of the knee were acquired. COMPARISON: None. FINDINGS: Bones: Normal mineralization. No fractures or malalignment. There is severe medial compartment joint space loss, mild patellofemoral compartment joint space loss and prominent tricompartment marginal spurs. Soft tissues: Moderate size suprapatellar joint effusion. Possible trace lateral compartment chondrocalcinosis. 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 Possible lateral compartment chondrocalcinosis raises possibility of CPPD, hyperparathyroidism, hemochromatosis. Moderate-sized joint effusion of uncertain etiology. Dictated by: Bri Hargrove M.D. on 02/16/2024 at 16:59 Approved by: Bri Hargrove M.D. on 02/16/2024 at 17:01
--- NOTE | 2024-02-16 12:55 | DI.RAD.S_ITS ---
PROCEDURE: XR CERVICAL SPINE 4V OR 5V INDICATIONS: NECK PAIN TECHNIQUE: 5 views of the cervical spine acquired. COMPARISON: None. FINDINGS: Bones: No fractures or dislocations to the T1 level. Moderate degenerative changes most pronounced at C5-C6 and C6-C7. Uncovertebral joint hypertrophy. Oblique images demonstrate mild multilevel bony neural foraminal narrowing. Soft tissues: No prevertebral soft tissue swelling. IMPRESSION: Moderate degenerative changes most pronounced at C5-C6 and C6-C7. Consider further evaluation with MRI cervical spine. Dictated by: Sanya Xiao M.D. on 02/16/2024 at 15:20 Approved by: Sanya Xiao M.D. on 02/16/2024 at 15:21
== END ==
PROVIDERS: PCP Physician Assistant Medical; Referring Provider Physician Assistant Medical; Visit Provider Physician Assistant Medical
DX: Z12.31 Encounter for screening mammogram for malignant neoplasm of breast (principal); M47.812 Spondylosis without myelopathy or radiculopathy, cervical region; M25.561 Pain in right knee; M54.2 Cervicalgia; R92.313 Mammographic fatty tissue density, bilateral breasts
CPT/HCPCS: 72050; 73562; 77063; 77067

== ENCOUNTER → 2025-04-02 15:22 | Outpatient (CLI) | payer MEDICARE, OTHER, SELFPAY ==
[2025-02-28 10:58] VITALS: BMI 36.0
--- NOTE | 2025-04-02 15:31 | DI.MG.S_ITS ---
MM screening mammo BI: 04/02/2025. BI-RADS: 1 CLINICAL: 69-year old female for bilateral screening mammogram. Tyrer-Cuzick lifetime risk of 5.2%. No personal or first-degree family history of breast cancer. Current reported family history of breast cancer: maternal grandmother. PRIOR EXAMS 02/16/2024, 08/19/2022, 08/03/2021, 07/30/2020. MAMMOGRAPHY TECHNIQUE: 2D and 3D (tomosynthesis) digital mammographic views obtained, with additional images as needed for full coverage. Current study was also evaluated with a Computer Aided Detection (CAD) system. DENSITY A. The breasts are almost entirely fatty. MAMMOGRAPHY FINDINGS Bilateral: No suspicious mass, asymmetry, microcalcification, or other abnormality seen. IMPRESSION: * No evidence of malignancy. RECOMMENDATIONS Bilateral * Annual screening mammography. OVERALL ASSESSMENT CATEGORY BI-RADS-1: Negative. The [employer] recommends annual screening mammography beginning at age 40 for women with average risk of breast cancer. ELECTRONICALLY SIGNED: Tavon Davis M.D. on 04/03/2025 at 07:01:29 AM PT Interpreting Station ID: [id number]
== END ==
PROVIDERS: PCP Physician Assistant Medical; Referring Provider Physician Assistant Medical; Visit Provider Physician Assistant Medical
DX: Z12.31 Encounter for screening mammogram for malignant neoplasm of breast (principal); R92.313 Mammographic fatty tissue density, bilateral breasts; Z80.3 Family history of malignant neoplasm of breast
CPT/HCPCS: 77063; 77067